=== PATIENT | female | born 1980 | race Caucasian/White ===

== ENCOUNTER 2019-01-12 10:55 | Observation (INO) | payer SELFPAY ==
--- NOTE | 2019-01-12 11:25 | ED ---
Psychiatric Complaint - HPI Summary HPI Summary: The patient is a 38 y/o F presenting to [facility] with a chief complaint of feeling of paranoia recently. She reports that she woke up confused about the day as she thought it was Saturday but it is Saturday, although she remembers doing things this past weekend. She also notes she is concerned about her finances and is stressed about that. She has taken Xanax despite it not being prescribed to her. She was taking Lamictal but has stopped, and she denies history of bipolar disorder. She only has had one episode like this before while she was in her early 20s. Currently, her symptoms are rated 0/10 in severity. She additionally c/o a pressure in her eyes but denies any other symptoms including SI or HI. PMHx: eating disorder. FHx: mood disorder, bipolar disorder, schizophrenia. Nonsmoker, no EtOH, no substance use. Medications reviewed. Allergies noted. - History Of Current Complaint Time Seen by Provider: 01/12/19 11:11 Hx Obtained From: Patient Onset/Duration: Gradual Onset, Lasting Days, Still Present Timing: Days Severity Initially: Mild Severity Currently: Severe Character: Manic Aggravating Factor(s): Recent Stress Alleviating Factor(s): Nothing - Xanax no relief Associated Signs And Symptoms: Positive: Paranoid Behavior Related History: Positive For: Prior Psychiatric Issues - possible hx of bipolar disorder but denies Has Suicidal: Denies: Thoughts Has Homicidal: Denies: Thoughts - Allergies/Home Medications Allergies/Adverse Reactions: Allergies Allergy/AdvReac Type Severity Reaction Status Date / Time No Known Allergies Allergy Unknown Verified 01/12/19 11:23 Reaction Details PMH/Surg Hx/FS Hx/Imm Hx Endocrine/Hematology History: Denies: Hx Diabetes Cardiovascular History: Denies: Hx Hypercholesterolemia, Hx Hypertension Musculoskeletal History: Denies: Hx Rheumatoid Arthritis, Hx Osteoporosis Psychiatric History: Reports: Hx Eating Disorder, Hx Bipolar Disorder - unknown , patient denies but has taken Lamictal before - Surgical History Surgical History: None Surgery Procedure, Year, and Place: none Infectious Disease History: No Infectious Disease History: Denies: Traveled Outside the [place] in Last 30 Days - Family History Known Family History: Positive: Other - psychiatric disorders - mood, bipolar, schizophrenia - Social History Alcohol Use: Daily Hx Substance Use: Yes Substance Use Type: Reports: Marijuana Hx Tobacco Use: Yes Smoking Status (MU): Former Smoker Review of Systems Positive: Other - pressure in eyes Psychological: Other - paranoia, stress. Negative: SI, HI. All Other Systems Reviewed And Are Negative: Yes Physical Exam - Summary Physical Exam Summary: VITAL SIGNS: Reviewed. Hypertensive. GENERAL: Patient is a well-developed and nourished female who is lying comfortable in the stretcher. Patient is not in any acute respiratory distress. HEAD AND FACE: No signs of trauma. No ecchymosis, hematomas or skull depressions. No sinus tenderness. EYES: PERRLA, EOMI x 2, No injected conjunctiva, no nystagmus. EARS: Hearing grossly intact. Ear canals and tympanic membranes are within normal limits. MOUTH: Oropharynx within normal limits. NECK: Supple, trachea is midline, no adenopathy, no JVD, no carotid bruit, no c- spine tenderness, neck with full ROM. CHEST: Symmetric, no tenderness at palpation. LUNGS: Clear to auscultation bilaterally. No wheezing or crackles. CVS: Regular rate and rhythm, S1 and S2 present, no murmurs or gallops appreciated. ABDOMEN: Soft, non-tender. No signs of distention. No rebound, no guarding, and no masses palpated. Bowel sounds are normal. EXTREMITIES: FROM in all major joints, no edema, no cyanosis or clubbing. NEURO: Alert and oriented x 3. No acute neurological deficits. Speech is normal and follows commands. SKIN: Dry and warm. PSYCH: Signs of psychosis and pressure speech with hyper verbalization. Tangential speech.Denies any suicidal thoughts or plan. No homicidal thoughts or plan. Triage Information Reviewed: Yes Vital Signs Reviewed: Yes Procedures - Sedation Patient Received Moderate/Deep Sedation with Procedure: No Diagnostics - Laboratory Result Diagrams: 01/13/19 06:49 01/13/19 06:49 Lab Statement: Any lab studies that have been ordered have been reviewed, and results considered in the medical decision making process. - EKG 1130 Cardiac Rate: NL - 86 bpm EKG Rhythm: Sinus Rhythm Summary of EKG Findings: EKG at 1130 reveals NSR at 86 bpm. T-wave inversions in V3. No ST elevations. ED physician has reviewed and interpreted this EKG. Re-Evaluation - Re-Evaluation First Eval Re-Evaluation Time: 11:30 Change: Unchanged Comment: Patient continues to be hypertensive; we will administer Labetalol. Second Eval Re-Evaluation Time: 12:40 Change: Unchanged Comment: Patient continues to be hypertensive; we will administer second dose of Labetalol. Third Eval Re-Evaluation Time: 14:05 Change: Improved Comment: Patient's blood pressure has improved to 140/112 mmHg. She is aware of plan for admission. Course/Dx - Course Assessment/Plan: Patient is a 38 y/o F who has possible history of bipolar disease with onset of episode of paranoia and stress recently. After examination I noticed that the patient is manic. However, the patient is also very hypertensive. Patient has no history of hypertension. Therefore, blood work was sent, and the patient was given Labetalol IV. Blood pressure continues to be hypertensive; therefore, she was given an additional dose of Labetalol. The blood pressure continues to be elevated; the patient cannot be medically clear. At this point I discussed my physical exam and findings with Dr. Burdick from the hospital services who accepted the patient for admission. - Differential Dx/Clinical Impression Provider Diagnosis: Uncontrolled hypertension - Physician Notifications Discussed Care Of Patient With: Yesika Burdick - hospitalist Time Discussed With Above Provider: 14:00 Instructed by Provider To: Admit As Observation - I discussed the patients case with Dr. Burdick, who accepts the patient for admission. Discharge ED - Sign-Out/Discharge Documenting (check all that apply): Patient Departure - Patient accepted for admission by Dr. Burdick. - Discharge Plan Condition: Improved Disposition: ADMITTED TO [facility] - Billing Disposition and Condition Condition: STABLE Disposition: Admitted to [facility] - Attestation Statements Document Initiated by Elizabeth: Yes Documenting Scribe: Karen Conroy Provider For Whom Elizabeth is Documenting (Include Credential): Dr. Tanner Cabello MD Scribe Attestation: Karen Isidro scribed for Dr. Tanner Cabello MD on 01/13/19 at 1841. Scribe Documentation Reviewed: Yes Provider Attestation: The documentation as recorded by the Karen rodríguez accurately reflects the service I personally performed and the decisions made by me, Dr. Tanner Cabello MD Status of Scribe Document: Viewed
[2019-01-12] MEDS ORDERED: Labetalol IV* 5 MG/ML 20 ML VIAL IV PUSH ONE ×2 (11:37→12:39)
[2019-01-12 11:40] LABS: ABS Lymphocytes 0.8 10^3/ul (1.0-4.8); ABS Monocytes 0.4 10^3/ul (0-0.8); ABS Neutrophils 3.3 10^3/ul (1.5-7.7); Eosinophil % 0.3 %; Hematocrit 40 % (35-47); Hemoglobin 13.9 g/dL (12.0-16.0); Lymphocyte % 18.2 %; Mean Corpuscular HGB Conc 35 g/dL (31-36); Mean Corpuscular Hemoglobin 33 pg (27-31); Mean Corpuscular Volume 94 fL (80-97); Mean Platelet Volume 7.2 fL (7.4-10.4); Platelet Count 260 10^3/uL (150-450); Red Blood Count 4.25 10^6 /uL (3.70-4.87); Red Cell Distribution Width 12 % (10-15); White Blood Count 4.6 10^3/uL (3.5-10.8)
[2019-01-12 11:54] LABS: ALT 21 U/L (7-52); AST 25 U/L (13-39); Albumin 4.7 g/dL (3.2-5.2); Albumin/Globulin Ratio 1.8 (1-3); Alkaline Phosphatase 51 U/L (34-104); Anion Gap 9 mmol/L (2-11); BUN/Creatinine Ratio 11.6 (8-20); Blood Urea Nitrogen 8 mg/dL (6-24); CO2 Carbon Dioxide 26 mmol/L (22-32); Calcium 9.8 mg/dL (8.6-10.3); Chloride 101 mmol/L (101-111); EGFR Non-African American 94.2 (>60); Globulin 2.6 g/dL (2-4); Glucose 98 mg/dL (70-100); Potassium 3.5 mmol/L (3.5-5.0); Sodium 136 mmol/L (135-145); Total Protein 7.3 g/dL (6.4-8.9)
[2019-01-12 12:05] LABS: Acetaminophen < 15 mcg/mL; Alcohol < 10 mg/dL (<10); Salicylate < 2.50 mg/dL (<30)
[2019-01-12 12:13] LABS: CKMB ng/mL 1.2 ng/mL (0.6-6.3)
[2019-01-12 12:21] LABS: Urine Appearance Clear; Urine Bilirubin Negative (Negative); Urine Blood Negative (Negative); Urine Color Straw; Urine Glucose Negative (Negative); Urine Ketones Negative (Negative); Urine Nitrite Negative (Negative); Urine Protein Negative (Negative); Urine Specific Gravity 1.001 (1.010-1.030); Urine Urobilinogen Negative (Negative)
[2019-01-12 12:41] LABS: Urine Benzodiazepine Screen None Detected (None Detect); Urine Opiates Screen None Detected (None Detect)
[2019-01-12] MEDS ORDERED: LORazepam TAB(*) 1 MG PO ONE (13:01)
[2019-01-12] MEDS ORDERED: Metoprolol Tartrate TAB* 50 mg PO ONE (14:01)
[2019-01-12] MEDS ORDERED: Metoprolol Tartrate TAB* 25 MG PO ONE (14:02)
[2019-01-12] MEDS ORDERED: Ondansetron INJ* 2 MG/ML VIAL IV PRN (15:04)
[2019-01-12] MEDS ORDERED: Acetaminophen TAB* 325 MG PO PRN (15:08)
[2019-01-12] MEDS ORDERED: Thiamine INJ* 100 MG/ML 2 ML VIAL IM ONE (15:08)
[2019-01-12] MEDS ORDERED: LORazepam TAB(*) 1 MG PO SCH (16:00)
[2019-01-12] MEDS ORDERED: hydrALAZINE IV* 20 MG/ML VIAL IV SLOW PU PRN (17:22)
[2019-01-12] MEDS ORDERED: Ibuprofen TAB* 600 MG PO ONE (20:09)
[2019-01-12] MEDS: Metoprolol Tartrate TAB* 25 MG PO SCH (20:13)
--- NOTE | 2019-01-12 20:55 | HP ---
HISTORY AND PHYSICAL: ADDENDUM: DATE OF ADMISSION: 01/12/19 HISTORY OF PRESENT ILLNESS: The case was reviewed and discussed with Melissa Lei NP. Ms. Bledsoe is a 38-year-old female with past medical history of bipolar disorder , who was brought into the emergency room with complaints of paranoia. She was evaluated in the emergency room and found to have very elevated blood pressures requiring labetalol IV. She was seen by mental health unit and it was requested that hospitalist team evaluate the patient prior to considering admission to the mental health unit. As per [facility] evaluation, the patient has no suicidal or homicidal ideations. IMPRESSION AND PLAN: In further questioning, the patient admits to drinking of a bottle of wine a day, so one of the concerns is that her uncontrolled hypertension may be secondary to alcohol withdrawal. She will be admitted to the telemetry floor on a WA protocol and we will monitor her blood pressure. She will be started on metoprolol 25 mg p.o. b.i.d. and we will monitor her blood pressure. She will have mental health evaluation because when her blood pressure is controlled, she can be transferred to the mental health unit if considered necessary. I am in agreement with the current management. [id number]/[facility] #: [id number] LEXY
[2019-01-13 07:03] LABS: ABS Eosinophils 0.1 10^3/ul (0-0.6); ABS Lymphocytes 1.2 10^3/ul (1.0-4.8); ABS Monocytes 0.4 10^3/ul (0-0.8); ABS Neutrophils 3.2 10^3/ul (1.5-7.7); Eosinophil % 1.5 %; Hematocrit 39 % (35-47); Hemoglobin 13.4 g/dL (12.0-16.0); Lymphocyte % 24.2 %; Mean Corpuscular HGB Conc 35 g/dL (31-36); Mean Corpuscular Hemoglobin 33 pg (27-31); Mean Corpuscular Volume 96 fL (80-97); Mean Platelet Volume 7.6 fL (7.4-10.4); Platelet Count 260 10^3/uL (150-450); Red Blood Count 4.05 10^6 /uL (3.70-4.87); Red Cell Distribution Width 13 % (10-15); White Blood Count 4.9 10^3/uL (3.5-10.8)
[2019-01-13 07:21] LABS: EGFR African American 103.6 (>60); EGFR Non-African American 85.6 (>60)
[2019-01-13] MEDS: Metoprolol Tartrate TAB* 25 MG PO SCH (08:30)
[2019-01-13] MEDS ORDERED: Ibuprofen TAB* 600 MG PO PRN (08:47)
[2019-01-13] MEDS ORDERED: Ibuprofen TAB* 600 MG ONE (08:51)
[2019-01-13] MEDS ORDERED: Thiamine TAB* 100 MG TAB PO SCH (09:00)
[2019-01-13] MEDS ORDERED: Multivitamins/Minerals TAB PO SCH (09:00)
[2019-01-13] MEDS ORDERED: Folic Acid TAB* 1 MG PO SCH (09:00)
[2019-01-13 11:36] VITALS: BP 144/94
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
--- NOTE | 2019-01-13 21:57 | DS ---
CC: Dr. Thomas, Psychiatry * DISCHARGE SUMMARY: DATE OF ADMISSION: 01/12/19 DATE OF DISCHARGE: Transferred to our psychiatric unit on 01/13/19. PRIMARY CARE PROVIDER: None. DISPOSITION ON DISCHARGE: Mental Health Unit at [facility]. CONDITION ON DISCHARGE: Stable. DISCHARGE DIAGNOSES: 1. Manic episode with paranoid delusions. 2. Uncontrolled hypertension. MEDICATION AT DISCHARGE: Metoprolol tartrate 25 mg b.i.d. LABORATORY DATA AND STUDIES PERFORMED DURING THE HOSPITAL STAY: Included: On , white blood cell count of 4.8, hemoglobin of 13.4, hematocrit of 39, and platelets of 260,000. Sodium 139, potassium 4.0, chloride 107, carbon dioxide 26, BUN 9, creatinine 0.75. Urinalysis was grossly unremarkable apart from low specific gravity. Toxicology was unremarkable. CONSULTATION DURING THE HOSPITAL STAY: Included Dr. Thomas from Psychiatry. HOSPITALIZATION COURSE: Melissa Bledsoe is a 38-year-old female with history of bipolar disease, who presented to the hospital with systolic pressures in the 200s, initially for psychiatric evaluation in regards to her paranoid delusions and manic. The patient was noted of being hypotensive, but had not seen a doctor for quite some time. She had an episode of "anxiety" several years ago, for which she was on clonazepam, but then she stopped it. The patient was treated with intravenous labetalol, but eventually stabilized on metoprolol tartrate 25 mg twice a day. She was seen by Dr. Thomas in consultation who recommended involuntary inpatient psychiatric admission to our mental health unit at [facility]. The patient also has a history of significant alcohol use. She is going to be transferred to our mental health unit for further evaluation and treatment of her manic episode. PHYSICAL EXAMINATION: At the time of discharge, blood pressure of 144/94, heart rate of 64 and regular, respiratory rate 16, oxygen saturation 100% on room air, temperature 98.7. General: The patient is a pleasant 38-year-old female, who is in no acute distress. Alert, awake, and oriented x3. HEENT: Head: Atraumatic, normocephalic. Eyes: Pupils are equal, reactive to light and accommodation. Oropharynx is clear. Mucosa moist. Neck: Supple. No JVD. No bruits bilaterally. Cardiovascular: Regular rate and rhythm. No murmur. Respiratory: Clear to auscultation bilaterally. Abdomen: Soft, nontender. Bowel sounds are present in all 4 quadrants. Extremities: There is no edema. Pulses are +2 bilaterally. No clubbing or cyanosis. On neuro evaluation, speech is clear. Cranial nerves II through XII grossly intact. Motor strength is 5/5 bilaterally. Psychiatric Evaluation: The patient is alert and oriented x3, pleasant and cooperative with evaluation. She appears to have somewhat tangential speech and flight of ideas. Also pressured speech noted. There is no evidence of paranoia on today's evaluation. The patient is being transferred to our psychiatric unit at [facility]. She is recommended to be on low sodium diet and continue her metoprolol. She is recommended to follow up with her primary care provider after she is discharged from mental health unit. Please note that this is a short summary of the patient's hospitalization. Please refer to further medical records for details. [id number]/[facility] #: [id number] MTDD
--- NOTE | 2019-01-16 23:05 | HP ---
Amended report to enter cosigning physician. ADMISSION HISTORY AND PHYSICAL: DATE OF ADMISSION: 01/12/19 PRIMARY CARE PHYSICIAN: Dr. Patel Albert. PROVIDER: Melissa Lei NP. ATTENDING PHYSICIAN: Dr. Schaeffer* (dictated by Melissa Lei NP). CHIEF COMPLAINT: Disorganized thinking. HISTORY OF PRESENT ILLNESS: This is a 38-year-old female with a past medical history significant for an eating disorder and previous episode of manic behavior, who presented to the emergency room on 01/12/19 after a friend had called EMS to bring her to be evaluated. Within the previous week, the patient had been under a lot of stress, had recently broken up with her boyfriend, stated she was was sleeping on somebody's couch, no longer had a home. She was also very concerned about her daughter stating that nobody was communicating with her about her health and that she was concerned that her daughter had cancer. Report from the nurse stated that she had also made claims that she had purchased a small business and had made other grand purchases within the past week as well. When the patient was evaluated in the emergency room, initial blood pressure was found to be 209/126 with no previous history of hypertension. The patient was treated with a total of 40 mg of labetalol and 50 mg of p.o. metoprolol. The patient's blood pressure responded fairly well. Blood pressure came down to 160/100. During the course of the evaluation, it also became clear that the patient drank up to 1 bottle of wine a day and even more on the weekends. Denied any thoughts of harming herself or others. PAST MEDICAL HISTORY: Significant for previous manic episode and eating disorder. PAST SURGICAL HISTORY: There was none. HOME MEDICATION: Included Night Gain supplement 1 tab p.o. q.p.m. ALLERGIES: No known drug allergies. FAMILY HISTORY: Significant for mood disorder, bipolar disorder, schizophrenia. SOCIAL HISTORY: Denied any smoking. Drank, again, up to 1 bottle of wine a day with more on the weekends. Smokes marijuana, occasionally psychedelic mushroom. and has 2 children. REVIEW OF SYSTEMS: Positive for depression and feelings of helplessness. Negative for chest pain, shortness of breath, palpitations, abdominal pain, nausea, vomiting, issues with bowel or bladder. PHYSICAL EXAMINATION GENERAL: This is a well-developed, well-groomed woman seen sitting up in bed, agitated, otherwise in no acute distress. VITAL SIGNS: Blood pressure 166/105, 87 pulse, respiration rate 17, O2 sat 98% oxygen on room air, temperature was 97.7 HEENT: Conjunctivae pink and moist. Extraocular muscles intact. ENT: Oropharynx clear. Mucous membranes moist. NECK: No cervical lymphadenopathy. PULMONARY: Lung sounds clear throughout bilaterally on room air. No accessory muscle use noted. CARDIAC: S1, S2 present. Heart rate regular. No murmurs, gallops, or rubs appreciated. ABDOMEN: Soft, nondistended, nontender. Positive bowel sounds x4. MUSCULOSKELETAL: No clubbing or cyanosis noted. 5/5 strength to bilateral upper and lower extremities. NEUROLOGIC: No focal deficits appreciated. Sensation intact to light touch. PSYCHIATRIC: Alert and oriented x4. Disorganized thought process. Speech slightly pressured. SKIN: No rashes or open areas noted. DIAGNOSTIC STUDIES/LAB DATA: EKG revealed sinus rhythm. Significant lab data includes MCH of 33 and MPV 7.2. Chemistry was unremarkable. Urine was negative for any UTIs, did not show positive for any cocaine, cannabinoids, amphetamines, barbiturates, or phencyclidine. ASSESSMENT AND PLAN: My impression is that this is a 38-year-old female with a past medical history of previous manic episode and eating disorder, who presented to the emergency room on 01/12/19 with hypertensive urgency likely related to alcohol consumption as well as current manic state. 1. Hypertensive urgency, treated with a total of 40 mg labetalol and 50 metoprolol in the emergency room. Initiate metoprolol tartrate 25 mg p.o. b.i.d. 2. EtOH abuse. Initiate WAM protocol q.2 hours with p.o. Ativan per protocol. Initiate thiamine and folic acid as well as a multivitamin daily. 3. Manic episode. Psych consult already placed. They will not transfer the patient to [facility] until her blood pressure is under control. 4. Code status is full. 5. DVT prophylaxis: SCDs. The plan was discussed with and agreed upon by Dr. Schaeffer. TIME SPENT: Time spent on the patient is about 60 minutes with more than half of it spent face to face. Melissa Lei, MANAGER FIN[employer]CIAL SERVICES [id number]/[facility] #: [id number] LEXY
== END 2019-01-13 14:58 ==
LOC: ED 10:55 → MED 16:31
PROVIDERS: ADMIT Internal Medicine; ATTEND Internal Medicine
DX: F22 Delusional disorders (principal); I10 Essential (primary) hypertension; F31.9 Bipolar disorder, unspecified; Z87.891 Personal history of nicotine dependence
CPT/HCPCS: 36415; 80048; 80053; 80307; 80320; 80329; 81003; 82553; 84443; 84484; 85025; 93005; 96372; 96374; 96375; 99285; A9270-GY; G0378; G0480; J3411

== ENCOUNTER 2019-01-13 15:03 | Inpatient (IN) | payer SELFPAY ==
[2019-01-13] MEDS ORDERED: Al Hydrox/Mg Hydrox/Simet LIQ* 30 ML UDC PO PRN (15:07)
[2019-01-13] MEDS ORDERED: Ibuprofen TAB* 400 MG PO PRN (18:18)
[2019-01-13] MEDS: Metoprolol Tartrate TAB* 25 MG PO SCH (19:05)
[2019-01-13] MEDS: clonazePAM TAB(*) 1 MG PO PRN (19:19)
[2019-01-14] MEDS: clonazePAM TAB(*) 1 MG PO PRN (03:20)
[2019-01-14] MEDS: Metoprolol Tartrate TAB* 25 MG PO SCH ×2 (09:15→20:28)
[2019-01-14] MEDS: Acetaminophen TAB* 325 MG PO PRN ×2 (15:30→20:28)
--- NOTE | 2019-01-14 16:42 | PN ---
Subjective - Subjective Date of Service: 01/14/19 Service Type: 79159 Hosp care 25 min moderate complexity Subjective: Megan seems more euthymic today. She is advocating for her discharge but not in an inappropriate fashion. She's gone to some groups and has been social with staff. She took the clonazepam twice last night but still did not sleep throughout the evening. I detect no evidence of paranoia or delusions today. Objective - General Observations Appearance: Well Groomed Appears Stated Age: Yes Stature: WNL Posture: WNL Eye Contact: Average Behavior/Activity: WNL - Interaction Observations Attitude Towards Examiner: Cooperative Stated Mood: Expansive Affect: Full Speech Pattern/Tone: Clear, Appropriate Thought Process: Coherent Perception: WNL Thought Content: WNL Hallucination Type: None Delusion Type: None - Cognitive Function Orientation: A&O x 4 Level of Consciousness: Awake Cognition: WNL Estimated Intelligence: Normal Insight: WNL Judgment Within Normal Limits: No Ability to Make Reasonable Decisions: Mildly Impaired - Medication Compliance Cooperative with Inpatient Medication Regimen: Yes - Group Participation Participates in Group Activities: Yes Assessment - Assessment Merits Inpatient Hospitalization: For Immediate Safety, For Stabilization Inpatient DSM-V Dx: F31.2 Clinical Impression: 38 y.o. 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 [facility]: Problem List - Patient Problems (1) Bipolar affective, manic, severe w/ psych Current Visit: Yes Status: Acute Priority: High Code(s): F31.2 - BIPOLAR DISORD, CRNT EPISODE MANIC SEVERE W PSYCH FEATURES SNOMED Code(s): 529110949 Plan - Plan Treatment Plan: Name: MEGAN EARL Birthdate: 1980 [id number] We are treating her conservatively with prn clonazepam and milieu care, per her preference. Consider discharge to home tomorrow if she continues to demonstrate euthymic mood and ability to assure own safety. Continued Medication Management: Start Medication Medications: Current Medications Acetaminophen (Tylenol Tab*) 650 mg PO Q4H PRN PRN Reason: for pain; or Temp >101 F Last Admin: 01/14/19 15:30 Dose: 650 mg Al Hydrox/Mg Hydrox/Simethicone (Maalox Plus*) 30 ml PO Q4H PRN PRN Reason: INDIGESTION Clonazepam (Klonopin Tab(*)) 1 mg PO Q8H PRN PRN Reason: ANXIETY Last Admin: 01/14/19 03:20 Dose: 1 mg Ibuprofen (Motrin Tab*) 400 mg PO Q6H PRN PRN Reason: PAIN - MILD Last Admin: 01/13/19 19:17 Dose: 400 mg Metoprolol Tartrate (Lopressor Tab*) 25 mg PO BID DRAKE Last Admin: 01/14/19 09:15 Dose: 25 mg - Discharge Plan Discharge Plan: Inpatient Hospitalization
[2019-01-15 08:23] VITALS: BP 122/77
[2019-01-15] MEDS: Metoprolol Tartrate TAB* 25 MG PO SCH (08:31)
[2019-01-15] MEDS: Acetaminophen TAB* 325 MG PO PRN (10:59)
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
[2019-01-15] MEDS ORDERED: Lithium Carbonate TAB* 300 MG PO SCH (21:00)
== END 2019-01-15 12:20 | disposition home or self-care (01) | DRG 885 ==
LOC: BSU 15:03
PROVIDERS: ADMIT Psychiatry & Neurology Psychiatry; ATTEND Psychiatry & Neurology Psychiatry
DX: F31.2 Bipolar disorder, current episode manic severe with psychotic features (principal); Z62.810 Personal history of physical and sexual abuse in childhood; Z72.89 Other problems related to lifestyle; Z87.891 Personal history of nicotine dependence
CPT/HCPCS: 99222; 99232; 99238; A9270-GY